=== PATIENT | male | born 1940 | race Caucasian/White ===

== ENCOUNTER → 2017-10-26 | Outpatient (CLI) | payer MEDICARE ==
[~2017-10-26] VITALS: Ht 180.3 cm; Wt 102.5 kg
[~2017-10-26] MED LIST: ACET-2267 PO; AMIO200T2 PO; AMLO1CAP5 PO; ASP81CT PO; AZIT-21 PO; CATHETER FLUSH 10 ML SYR IV SCH; CHOL20003 PO; CLON0.1T PO; DABI150C2 PO; DABI150C5 PO; DILT120C PO; DILT120C53 PO; DILT360C26 PO; ERGO2000 PO; FAMO20TA45 PO; HYDR25TA4 PO; INUL1.5T3 PO; INUL1TAB4 PO; LISI20TA PO; LISI40TA PO; METO-333 PO; METO-387 PO; MULT-608 PO; OMEG1CAP53 PO; OMEP20CA6 PO; PANT20TA2 PO; PANT40TA2 PO; RED600TA PO; WHEA1POW PO
[2017-10-26 09:07] VITALS: BP 146/82
--- NOTE | 2017-10-26 14:15 | STRESS TEST ---
DATE OF SERVICE: 10/26/2017 EXERCISE MYOVIEW STRESS TEST REPORT REFERRING PHYSICIAN: Dr. Villa. INDICATION: Coronary artery disease. FINDINGS: Baseline heart rate is 79, baseline blood pressure 144/61. Baseline EKG is sinus rhythm with no ischemic changes. SUMMARY: The patient was injected with 10.85 mCi of technetium-99 Myoview and the resting images were obtained. Then, the patient started exercising with a baseline heart rate, blood pressure and EKG mentioned above. The patient was able to exercise for a total of 4 minutes and 30 seconds on standard Gera protocol. With peak exercise level, EKG was showing [address] depression in II, III, aVF, V4, V5 and V6. Blood pressure at peak exercise level was 178/72. During recovery, heart rate and blood pressure returned to baseline. EKG returned to baseline. The resting and stress images were reviewed and compared in the short axis, horizontal long axis and vertical long axis views. Review of the images showed diaphragmatic attenuation with typical male pattern. There is decreased uptake at the basal to mid inferior wall and inferolateral wall, which is fixed. No significant ischemia was noted. SSS is 8. SDS 1. TID value 1.01. On the gated images, the left ventricle appeared to be in normal size with normal contractility. The inferior wall appeared to be marcella normally. Calculated ejection fraction 68%. CONCLUSION: 1. Fair exercise tolerance, a total of 4 minutes 30 seconds on standard Gera protocol, total of 6.4 METS achieving 95% of maximum expected artery. 2. Mild hypertensive response to exercise, returned to baseline during recovery. 3. Diaphragmatic attenuation with typical male pattern affecting the quality of the images. There is no significant ischemia or infarction was noted on SPECT images. 4. Normal left ventricular size with normal contractility with no segmental wall motion abnormality. Calculated ejection fraction 68%. Job ID: [id number] DocumentID: [id number] Dictated Date: 10/26/2017 12:02:08 Commercial Administrator Date: 10/26/2017 14:14:01 Dictated By: ALTON LEMON MD
== END ==
LOC: CARD 07:32
PROVIDERS: ATTEND Internal Medicine Cardiovascular Disease
DX: I25.10 Atherosclerotic heart disease of native coronary artery without angina pectoris (principal); I10 Essential (primary) hypertension; E78.5 Hyperlipidemia, unspecified; I48.0 Paroxysmal atrial fibrillation; E66.9 Obesity, unspecified; Z68.31 Body mass index [BMI] 31.0-31.9, adult
CPT/HCPCS: 78452; 93017

== ENCOUNTER → 2017-11-11 | Outpatient (CLI) | payer MEDICARE ==
[~2017-11-11] MED LIST changes: -CATHETER FLUSH 10 ML SYR IV SCH
== END ==
LOC: CARD 09:16
PROVIDERS: ATTEND Internal Medicine Cardiovascular Disease
DX: I25.10 Atherosclerotic heart disease of native coronary artery without angina pectoris (principal); I65.29 Occlusion and stenosis of unspecified carotid artery; E78.5 Hyperlipidemia, unspecified; E66.9 Obesity, unspecified; I48.0 Paroxysmal atrial fibrillation
CPT/HCPCS: 93306

== ENCOUNTER → 2019-03-11 | Outpatient (CLI) | payer MEDICARE ==
[~2019-03-11] MED LIST changes: -AMIO200T2 PO; +AMIO200T4 PO; +CATHETER FLUSH 10 ML SYR IV PRN; +REGADENOSON 0.4 MG/5 ML SYR (LEXISCAN) IV ONE
[2019-03-11 08:29] VITALS: BP 137/85
[2019-03-11 08:32] VITALS: BP 147/86
--- NOTE | 2019-03-14 19:06 | STRESS TEST ---
DATE OF SERVICE: 03/11/2019 LEXISCAN MYOVIEW STRESS TEST Baseline heart rate is 75. Baseline blood pressure is 137/85. Baseline EKG is sinus rhythm with no ischemic changes. In summary, the patient received 10.47 mCi of technetium-99 Myoview and the resting images were obtained. Then, he received 0.4 mg of Lexiscan followed by 30.6 mCi of technetium-99 Myoview. Throughout the test, there were no EKG changes. The resting and stress images were reviewed and compared in the short axis, horizontal long axis, and vertical long axis views. Review of the images showed diaphragmatic attenuation with decreased uptake involving the mid to apical inferior wall and inferolateral wall with subtle reversibility. SSS is , SDS 2, TID value 0.98. On the gated images, the left ventricle appeared to be normal size with normal contractility. Calculated ejection fraction is 66%. CONCLUSION: 1. The patient tolerated Lexiscan well. 2. Diaphragmatic attenuation affecting the quality of the images with questionable ischemia involving the mid to apical inferior wall and inferolateral wall. 3. Normal left ventricular size with normal contractility. Calculated ejection fraction is 66%. Job ID: [id number] DocumentID: [id number] Dictated Date: 03/14/2019 16:39:20 Roving Teller Date: 03/14/2019 19:06:17 Dictated By: ALTON LEMON MD
== END ==
LOC: CARD 06:39
PROVIDERS: ATTEND Internal Medicine Cardiovascular Disease
DX: I48.0 Paroxysmal atrial fibrillation (principal); I10 Essential (primary) hypertension; E78.5 Hyperlipidemia, unspecified
CPT/HCPCS: 78452; 93017

== ENCOUNTER 2019-03-30 07:50 | Day surgery (SDC) | payer MEDICARE ==
[~2019-03-30] VITALS: Ht 177 cm; Wt 103.8 kg
[~2019-03-30 07:50] MED LIST changes: -CATHETER FLUSH 10 ML SYR IV PRN; -REGADENOSON 0.4 MG/5 ML SYR (LEXISCAN) IV ONE
[2019-03-30] MEDS ORDERED: HEParin (CATH LAB) 2,000 ML IV ONE (07:54)
[2019-03-30] MEDS ORDERED: LIDOCAINE 1% INJ 20 ML 20 ML VIAL ONE (07:54)
[2019-03-30] MEDS ORDERED: NS IV 1000 ML 1,000 ML ONE ×2 (07:54→11:13)
[2019-03-30] MEDS ORDERED: NS IV 1000 ML 1,000 ML IV SCH (07:58)
[2019-03-30 08:13] VITALS: BP 152/85
[2019-03-30 08:24] LABS: HEMOGLOBIN 13.9 G/DL (13.3-17.7); MEAN PLATELET VOLUME 9.9 FL (7.4-10.4); RED CELL DISTRIBUTION WIDTH 13.4 % (10.0-14.5)
[2019-03-30 08:26] LABS: BILIRUBIN,URINE NEGATIVE (NEGATIVE); CLARITY,URINE CLEAR; COLOR,URINE YELLOW; GLUCOSE, URINE (UA) NEGATIVE (NEGATIVE); KETONES,URINE NEGATIVE (NEGATIVE); LEUKOCYTE ESTERASE ,URINE NEGATIVE (NEGATIVE); NITRITE,URINE NEGATIVE (NEGATIVE); PH,URINE 6 (5-9); PROTEIN,URINE NEGATIVE (NEGATIVE)
--- NOTE | 2019-03-30 08:34 | Diagnostic Imaging Report ---
INDICATION: Pre-heart catheterization. TIME OF EXAMINATION: 8:21 AM. COMPARISON: 06/01/2015. FINDINGS: The heart size is normal. The pulmonary vascularity is unremarkable. The lungs are clear. No infiltrate, effusion, or pneumothorax is detected. IMPRESSION: No acute cardiopulmonary process is detected. Dictated by: Dictated on workstation # [id number]
[2019-03-30] MEDS ORDERED: INUL2TAB8 PO (08:37)
[2019-03-30] MEDS ORDERED: HYDR25TA4 PO (08:37)
[2019-03-30] MEDS ORDERED: OMEG-143 PO (08:37)
[2019-03-30] MEDS ORDERED: MULT1TAB69 PO (08:37)
[2019-03-30 08:38] LABS: BACTERIA,URINE NEGATIVE /HPF; SQUAMOUS EPITHELIAL CELL,UR RARE /HPF
[2019-03-30] MEDS ORDERED: ALIR75PE SQ (08:38)
[2019-03-30] MEDS ORDERED: APIX5TAB PO (08:38)
[2019-03-30] MEDS ORDERED: FLEC50TA PO (08:38)
[2019-03-30] MEDS ORDERED: CETI10TA20 PO (08:40)
[2019-03-30 08:50] LABS: PROTHROMBIN TIME PATIENT 13.3 SEC (12.2-14.7)
[2019-03-30 08:58] LABS: ALANINE AMINOTRANSFERASE 24 U/L (0-55); ALBUMIN 4.6 GM/DL (3.2-4.5); ALKALINE PHOSPHATASE 50 U/L (40-136); BILIRUBIN,TOTAL 0.6 MG/DL (0.1-1.0); BUN/CREATININE RATIO 14; CALCIUM 9.7 MG/DL (8.5-10.1); CARBON DIOXIDE 28 MMOL/L (21-32); CHLORIDE 103 MMOL/L (98-107); CHOLESTEROL 130 MG/DL (< 200); CREATININE SERUM 1.41 MG/DL (0.60-1.30); GFR ESTIMATED 49; GLUCOSE 113 MG/DL (70-105); HDL CHOLESTEROL 38 MG/DL (40-60); POTASSIUM 4.2 MMOL/L (3.6-5.0); SODIUM 141 MMOL/L (135-145); TOTAL PROTEIN 7.1 GM/DL (6.4-8.2); TRIGLYCERIDES 137 MG/DL (<150); VLDL CHOLESTEROL 27 MG/DL (5-40)
[2019-03-30] MEDS ORDERED: DILT240C53 PO (09:34)
--- NOTE | 2019-03-30 09:40 | NUR ---
SPOKE WITH PT (HE HAD A LIST) WELL CALLING [facility] TO COMPLETE THE MED REC. PT WAS ABLE TO TELL ME HIS MEDS AND HOW/WHEN HE TAKES THEM. THE FOLLOWING ARE FILL DATES AND QTY ACCORDING TO CHERYL: 02-14-2019 LISINOPRIL #90/90DS 02-14-2019 METOPROLOL #30/30DS 02-15-2019 ELIQUIS #60/30DS 03-10-2019 FLECAINIDE #60/30DS 03-21-2019 HCTZ #90/90DS 03-21-2019 PANTOPRAZOLE #90/90DS PT INDICATES HE GETS HIS PRALUENT THRU PT ASSISTANCE AND HE WILL BE RECEIVING A SHIPMENT ON THIS Thursday04-01-2019 FOR HIS NEXT INJECTION ON Thursday04-04-2019. OTC MEDS: TYLENOL ZYRTEC PEPCID AC FIBER GUMMIES MTV FISH OIL
--- NOTE | 2019-03-30 09:54 | Cardiac Procedure Note-CS/ASA ---
Pre-Procedure Note Pre-Op Procedure Note H&P Reviewed The H&P was reviewed, patient examined and no changes noted. Date H&P Reviewed: Mar 30, 2019 Time H&P Reviewed: 09:53 Conscious Sedation Pre-Proced Time 09:53 ASA Score 3 For ASA 3 and 4: Consider anesthesia and medical clearance. Also, for patients with a history of failed moderate sedation consider anesthesia. Airway Lungs Heart ASA score ASA 1: a normal healthy patient ASA 2: a patient with a mild systemic disease (mid diabetes, controlled hypertension, obesity x ASA 3: a patient with a severe systemic disease that limits activity (angina, COPD, prior Myocardial infarction) ASA 4: a patient with an incapacitating disease that is a constant threat to life (CHF, renal failure) ASA 5: a moribund patient not expected to survive 24 hrs. (ruptured aneurysm) ASA 6: a declared brain- patient whose organs are being harvested. For emergent operations, add the letter E after the classification Mallampati Classification Grade 3 Sedation Plan Analgesia, Amnesia, Plan communicated to team members, Discussed options with patient/fam, Discussed risks with patient/fam The patient is an appropriate candidate to undergo the planned procedure, sedation, and anesthesia. The patient immediately re-assessed prior to indication. ALTON LEMON MD Mar 30, 2019 09:54
[2019-03-30] MEDS ORDERED: NITRO DRIP 25000 MCG/D5W 250 ML IV ONE (10:06)
[2019-03-30] MEDS ORDERED: fentaNYL INJECTION 100 MCG/2 ML AMP ONE (10:06)
[2019-03-30] MEDS ORDERED: MIDAZOLAM 5 MG/5 ML (VERSED) VIAL ONE (10:06)
[2019-03-30] MEDS ORDERED: HEParin 1000 UNIT/ML (10ML VIAL) FOR BOLUS ONE (10:06)
[2019-03-30] MEDS ORDERED: VERAPAMIL 5 MG/2 ML (CALAN) VIAL IV ONE (10:06)
[2019-03-30] MEDS ORDERED: ADENOSINE 3 MG/1 ML (ADENOSCAN) 30ML VIAL IV ONE (11:09)
[2019-03-30] MEDS ORDERED: CLOPIDOGREL 300 MG (PLAVIX) TABLET PO ONE (11:36)
[2019-03-30] MEDS ORDERED: ASPIRIN 325 MG (5 GR) TABLET ONE (11:36)
[2019-03-30] MEDS ORDERED: PATIENT MAY USE OWN MEDS, ALL PO SCH (11:45)
--- NOTE | 2019-03-30 11:45 | Consultation-Cardiology ---
HPI-Cardiology Cardiology Consultation Date of Consultation 03/30/19 Date of Admission Time Seen by Provider: 11:39 Indication: Coronary artery disease Home Medications & Allergies Allergies: Coded Allergies: atorvastatin (Unverified Allergy, Unknown, 05/30/15) caused a-fib fenofibrate (Unverified Allergy, Unknown, 05/30/15) caused a-fib episode rosuvastatin (Unverified Allergy, Unknown, 05/30/15) caused a-fib [id number]-[id number] Hx Patient Social History Alcohol Use: Denies Use Recreational Drug Use: No Smoking Status: Never a Smoker Recent Foreign Travel: No Recent Infectious Disease Expo: No Recent Hopitalizations: Yes (Appendectomy) Immunizations Up To Date Date of Pneumonia Vaccine: Apr 08, 2018 Date of Influenza Vaccine: Mar 08, 2019 Family Medical History Significant Family History: Heart Disease, CAD Under 55 Years Old, Stroke Physical Exam Physical Exam Vital Signs Vital Signs - First Documented 03/30/19 08:13 Temp 36.7 Pulse 71 Resp 18 B/P (MAP) 152/85 (107) Pulse Ox 97 O2 Delivery Room Air Capillary Refill : Height, Weight, BMI Height: 5'11.00" Weight: 226lbs. 0.0oz. 102.735474sk; 31.18 BMI Method:Stated ALTON LEMON MD Mar 30, 2019 11:45
--- NOTE | 2019-03-30 11:47 | Cardiac Cath Report ---
Cardiac Cath Report Physician (s)/Printing And Stamping Supervisor (s) Physician ALTON LEMON MD Pre-Procedure Diagnosis Pre-Procedure Diagnosis: Coronary artery disease Post-Procedure Note Procedure Start Date: Mar 30, 2019 Name of Procedure: Left heart catheterization FFR to LAD Stent to the LAD Findings/Procedure Note PROCEDURE NOTE: 78 years old gentleman with history of [id number] coronary artery disease, paroxysmal atrial fibrillation, has abnormal stress test, scheduled for cardiac catheterization possible PTCA. After explaining the procedure to the patient, all pros and cons were explained, all questions were answered. The patient signed the consent and then he was placed on the cardiac catheterization laboratory. Groin was prepped SL fashion local anesthesia was used. Sheath placed in the right radial artery, Stamping Ground catheter was advanced to the left ventricular cavity, pressure was measured no left ventricular gram was done, pulled back to the left corner systems up selective angiogram was done suspicious of significant disease in the LAD, intubated the right coronary artery and angiogram was done then I exchanged the catheter into FL 4 guide without success in intubating the left main coronary system, exchanged it into FL 3.5 guide and successfully intubated the left main coronary artery did angiogram in multiple views I was suspicious of significant lesion in the proximal mid and distal LAD. Patient received 3000 units of heparin, a second dose of 3000 units of heparin was given then FFR wire was advanced, baseline FFR to the distal LAD was 0.85. Patient was started on adenosine, FFR was 0.72 at the distal end 0.75 at the mid, decided to do the ostial/proximal LAD lesion, predilated location with 2.5 x 20 mm balloon and then deployed Trudi 2.5 x 23 mm stent expanded to 2.8 mm under 15 phi, post intervention angiogram was done after giving nitroglycerin showing excellent results, repeat FFR was 0.9 to the distal LAD, 0.95 in the mid LAD and 0.97 in the proximal LAD. At the end of the procedure the sheath was removed. vascular band was used FINDINGS: Hemodynamics LV 106/13, end-diastolic pressure of 13 Aorta 98/59 mean of 76 ANATOMY: Left Main has 50 percent ostial stenosis Left Anterior Descending has severe stenosis proximally, moderate to severe stenosis at the mid and distal portion, the mid and distal portion are smaller, FFR was 0.95 at the distal, successful deployment of Trudi drug-eluting stent 2.5 x 23 mm expanded to 2.8 mm with excellent results. FFR postintervention was 0.97 Left Circumflex is moderate in size with nonobstructive disease Right Coronory Artery is small to moderate in size with mild disease LV Gram was not done, pressure was measured CONCLUSION: 1. Multiple segment of severe stenosis at the proximal/ostial LAD, successful deployment of Trudi 2.5 x 23 mm expanded to 2.8 mm with excellent results, the mid and distal LAD has moderate to severe stenosis, the artery at the distal portion is very small artery. Will continue maximizing medical therapy and monitoring 2. 50 percent ostial left main coronary artery stenosis, no significant gradient by FFR 3. Mild disease in the circumflex and right coronary artery DISCUSSION AND RECOMMENDATION: continue to maximize medical therapy and monitor Anesthesia Type: Conscious Sedation Estimated blood loss (mL): 20 ml Contrast Amount: 115 ml Total Radiation Dose: 1420 mGy Post-Procedure Diagnosis Post-operative diagnosis: Coronary artery disease Paroxysmal atrial fibrillation Hypertension Hyperlipidemia ALTON LEMON MD Mar 30, 2019 11:47
[2019-03-30 12:45] VITALS: BP 113/62
[2019-03-30 14:00] VITALS: BP_SYST 106; BP_SYST 143; BP_DIAS 63; BP_DIAS 86
[2019-03-30 16:00] VITALS: BP 143/86
[2019-03-30] MEDS: NS IV 1000 ML 1,000 ML IV SCH ×2 (17:57→21:49)
[2019-03-30] MEDS ORDERED: NON-FORMULARY MEDICATION 1 EA EA (Acetaminophen (Tylenol Extra Strength) 500 MG) PO PRN (19:45)
[2019-03-30 20:00] VITALS: BP 135/80
[2019-03-30] MEDS ORDERED: MV,M1TAB2 PO (20:15)
[2019-03-30] MEDS ORDERED: METO-370 PO (20:15)
[2019-03-30] MEDS ORDERED: ACET-2429 PO (20:15)
[2019-03-30] MEDS ORDERED: INULIN PO SCH (21:00)
[2019-03-30] MEDS ORDERED: FLECAINIDE ACETATE 50 MG PO SCH (21:00)
[2019-03-30] MEDS ORDERED: VITAMIN D3 2000 UNIT PO SCH (21:00)
[2019-03-30] MEDS ORDERED: APIXABAN 5 MG (ELIQUIS) TABLET PO SCH ×2 (21:00)
--- NOTE | 2019-03-30 21:15 | NUR ---
THIS RN WENT THROUGH MEDS WITH PT AND HE REQUESTED THAT HE TAKE LISINOPRIL, METOPROLOL, ZYRTEC AND PEPCID AT THIS TIME. PT STATES THAT AT HOME HE NORMALLY TAKES SAID MEDICATIONS AT NIGHT TIME AND WOULD LIKE TO KEEP HIS NORMAL SCHEDULE IF AT ALL POSSIBLE. LISINOPRIL AND METOPROLOL WERE ON MAR TO BEGIN ON 03/31 AT 1800. ALL MEDICATIONS SCANNED INTO AUG THEY WERE GIVEN.
[2019-03-31] VITALS: BP 115/63
[2019-03-31 04:00] VITALS: BP 110/67
[2019-03-31 04:08] LABS: HEMOGLOBIN 11.9 G/DL (13.3-17.7); MEAN PLATELET VOLUME 9.8 FL (7.4-10.4); RED CELL DISTRIBUTION WIDTH 13.4 % (10.0-14.5); WHITE BLOOD COUNT 9.2 10^3/uL (4.3-11.0)
[2019-03-31 04:51] LABS: CALCIUM 8.6 MG/DL (8.5-10.1); CREATININE SERUM 1.32 MG/DL (0.60-1.30); POTASSIUM 4.5 MMOL/L (3.6-5.0)
[2019-03-31] MEDS ORDERED: OMEGA 3 (FISH OIL) 1000 MG CAP PO SCH (07:00)
[2019-03-31] MEDS: NS IV 1000 ML 1,000 ML IV SCH (07:46)
[2019-03-31 08:30] VITALS: BP 162/76
--- NOTE | 2019-03-31 08:34 | Cardiology Progress Note ---
Subjective Date Seen by Provider: Mar 31, 2019 Time Seen by Provider: 08:33 Subjective/Events-last exam Patient is laying down in bed, no new complaint. No chest pain Review of Systems General: No Chills, No Night Sweats, No Fatigue, No Malaise, No Appetite, No Other HEENT: No Head Aches, No Visual Changes, No Eye Pain, No Ear Pain, No Dysphasia, No Sinus Congestion, No Post Nasal Drip, No Sore Throat, No Other Pulmonary: No Dyspnea, No Cough, No Pleuritic Chest Pain, No Other Cardiovascular: No: Chest Pain, Palpitations, Orthopnea, Paroxysmal Noc. Dyspnea, Edema, Lt Headedness, Other Objective-Cardiology Exam Last Set of Vital Signs Vital Signs 03/31/19 03/31/19 04:00 07:00 Temp 36.4 Pulse 65 Resp 16 B/P (MAP) 110/67 (81) Pulse Ox 92 O2 Delivery Room Air Capillary Refill : Less Than 3 Seconds I&O Intake and Output 03/31/19 00:00 Intake Total 550 ml Balance 550 ml Intake Oral 550 ml # Voids 6 General: Alert, Oriented X3, Cooperative HEENT: Atraumatic, PERRLA Neck: Supple, No JVD, No Thyromegaly Lungs: Clear to Auscultation, Normal Air Movement Heart: Regular Rate, Normal S1, Normal S2, No Murmurs Abdomen: Normal Bowel Sounds, Soft, No Tenderness, No Hepatosplenomegaly, No Masses Extremities: No Clubbing, No Cyanosis, No Edema, Normal Pulses, No Tenderness/Swelling Skin: No Rashes, No Breakdown, No Significant Lesion Neuro: Normal Gait, Normal Speech, Strength at 5/5 X4 Ext, Normal Tone, Sensation Intact Psych/Mental Status: Mental Status NL, Mood NL Results Lab Laboratory Tests 03/31/19 03:35 A/P-Cardiology Admission Diagnosis Coronary artery disease Hypertension Hyperlipidemia Paroxysmal atrial fibrillation Assessment/Plan Coronary artery disease test post stenting to the LAD Hypertension, continue current medication Hyperlipidemia Continue current medication and follow-up as an outpatient ALTON LEMON MD Mar 31, 2019 08:34
[2019-03-31] MEDS ORDERED: ASPI-983 PO (08:38)
[2019-03-31] MEDS ORDERED: CLOP75TA28 PO (08:38)
--- NOTE | 2019-03-31 08:38 | Discharge Inst-Post CATH ---
Discharge Inst-CATH/EP Problems Reviewed?: Yes Post Cardiac Cath/EP D/C Inst Follow Up/Plan Appointment with Dr. Miranda's office in 2-4 weeks <b>CARDIAC CATH/EP PROCEDURE DISCHARGE INSTRUCTIONS</b> ACTIVITY * Go Home directly and rest. * Limit activity of the leg (or wrist if it was used) for 7 days including aerobics, swimming, jogging, bicycling, etc. * Restrict stair-climbing for 7 days if possible, if not, climb up with your non-cath leg, then bring together on the same step. * Avoid lifting, pushing, pulling or excessive movement of the affected extremity for 7 days. * Customary sexual activity may be resumed after 2 days-use caution not to use a position that strains or causes pain to the affected extremity. * No driving for 24 hours. * NO SMOKING. * Avoid straining for bowel movements for 7 days. * Gentle walking on level ground is allowed. * Returning to work will depend on the type of procedure and the results. Your doctor will discuss this with you. CALL YOUR DOCTOR FOR ANY OF THE FOLLOWING: *If bleeding from the puncture site occurs- Apply gentle pressure to site with clean cloth and call your doctor or EMS. * If a knot or lump forms under the skin, increases in size, or causes pain. * If bruising appears to be worsening or moving further down your leg instead of disappearing. * Temperature above 101 F. CARE OF YOUR GROIN INCISION; * Bruising or purple discoloration of the skin near the puncture site is common. * You may shower only, no bathtub bathing for 5 days. Be careful to avoid slipping as your leg may feel stiff. * If a closure device was used on your femoral artery, please see the attached guide regarding care of the device and your leg. * Leave dressing on FOR 24 hours. CARE OF YOUR WRIST INCISION; * Bruising or purple discoloration of the skin near the puncture site is common. * You may shower. * DO NOT submerge wrist. * Leave dressing on FOR 24 hours. ALTON LEMON MD Mar 31, 2019 08:38
[2019-03-31] MEDS ORDERED: PANTOPRAZOLE 40 MG (PROTONIX) TAB PO SCH (09:00)
[2019-03-31] MEDS ORDERED: CLOPIDOGREL 75 MG (PLAVIX) TABLET PO SCH (09:00)
[2019-03-31] MEDS ORDERED: ASPIRIN E.C. 81 MG (ECOTRIN) TAB PO SCH (09:00)
[2019-03-31] MEDS ORDERED: MULTIVIT W/MINERALS TAB (THERAGRAN M) PO SCH (09:00)
[2019-03-31] MEDS ORDERED: HYDROCHLOROTHIAZIDE 25 MG (HCTZ) TAB PO SCH (09:00)
[2019-03-31] MEDS ORDERED: [UNRECOGNIZED DRUG - OTHER] PO SCH (09:00)
[2019-03-31] MEDS ORDERED: FAMOTIDINE 20 MG (PEPCID) TABLET PO SCH (09:00)
[2019-03-31] MEDS ORDERED: meTOproloL SUCCINATE 50 MG (TOPROL XL) TAB PO SCH (18:00)
[2019-03-31] MEDS ORDERED: lisINopril 40 MG (PRINIVIL) TABLET PO SCH (18:00)
[2019-03-31] MEDS ORDERED: CETIRIZINE 10 MG PO SCH (18:00)
[2019-04-04] MEDS ORDERED: ALIROCUMAB 75 MG SQ SCH (09:00)
== END 2019-03-31 10:00 ==
LOC: CATH 07:50 → ICU 12:40 → CSD 18:55 → CATH 03-31 10:00
PROVIDERS: ATTEND Internal Medicine Cardiovascular Disease
DX: I25.10 Atherosclerotic heart disease of native coronary artery without angina pectoris (principal); I48.0 Paroxysmal atrial fibrillation; I65.29 Occlusion and stenosis of unspecified carotid artery; I10 Essential (primary) hypertension; E78.5 Hyperlipidemia, unspecified; Z79.02 Long term (current) use of antithrombotics/antiplatelets; Z79.899 Other long term (current) drug therapy; Z90.89 Acquired absence of other organs; Z88.8 Allergy status to other drugs, medicaments and biological substances; Z86.73 Personal history of transient ischemic attack (TIA), and cerebral infarction without residual deficits; Z82.49 Family history of ischemic heart disease and other diseases of the circulatory system; Z83.2 Family history of diseases of the blood and blood-forming organs and certain disorders involving the immune mechanism; Z80.9 Family history of malignant neoplasm, unspecified
CPT/HCPCS: 36415; 71045; 80048; 80053; 80061; 81000; 85027; 85347; 85610; 85730; 87081; 93005; 93458

== ENCOUNTER 2019-08-15 20:25 | Outpatient (CLI) | payer MEDICARE ==
[~2019-08-15 20:25] MED LIST changes: +ACET650T41 PO; +ALIR75PE SQ; +APIX5TAB PO; +ASPI-983 PO; +CETI10TA21 PO; +CLOP75TA28 PO; +DILT240C53 PO; +FLEC50TA PO; +INUL2TAB8 PO; -METO-387 PO; +METO50TA7 PO; +MTP25TSR PO; +MULT1TAB69 PO; +MV,M1TAB2 PO; +OMEG-143 PO
== END 2019-08-16 06:24 | disposition home or self-care (01) ==
LOC: SLEEP 20:25
PROVIDERS: ATTEND Family Medicine
DX: I49.9 Cardiac arrhythmia, unspecified (principal); G47.36 Sleep related hypoventilation in conditions classified elsewhere; I10 Essential (primary) hypertension
CPT/HCPCS: 95810

== ENCOUNTER → 2020-01-05 | Outpatient (CLI) | payer MEDICARE ==
[~2020-01-05] MED LIST changes: +MULT-567 PO; -MULT1TAB69 PO
--- NOTE | 2020-01-05 15:17 | Diagnostic Imaging Report ---
PROCEDURE: MRI lumbar spine. TECHNIQUE: Multiplanar, multisequence MRI of the lumbar spine was performed without contrast. INDICATION: Low back pain. COMPARISON: There are no prior studies available for comparison. FINDINGS: The T2 parasagittal images show that there is desiccation of the discs at every level and that there is narrowing of the disc spaces, particularly posteriorly, at L3-L4 and L4-L5. At the L3-L4 level, there is a disc bulge centrally which flattens the ventral aspect of the thecal sac and narrows the AP diameter to 17.1 mm. There is also mild narrowing of the neuroforamen on the right at this level. At the L4-L5 level, there is also a disc bulge. The AP diameter of the thecal sac is narrowed to 18.6 mm. There is moderate narrowing of the neuroforamen on the right at this level as well. At the L2-L3 level, there is a disc bulge eccentric to the left. The AP diameter of the thecal sac is narrowed to 15.3 mm. There is mild narrowing of the neuroforamen on the left at this level as well. The remainder of the lumbar spine is unremarkable for spinal stenosis or nerve root encroachment. There is a 30-40% compression deformity of the superior endplate of L1. This injury appears to be longstanding in nature. There is no abnormal signal arising from the osseous structures to suggest bone edema or fracture. There is no sign of a cord lesion. There is no paraspinal mass visualized. The bladder does appear to be distended by urine. IMPRESSION: 1. 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 However, the thecal sac is generous and there is no evidence for a high-grade central stenosis at any level. There is no significant neuroforaminal narrowing identified either. 2. There is no evidence for an acute bony abnormality. The 30-40% compression fracture of L1 is felt to be longstanding in nature. Dictated by: Dictated on workstation # [id number]
== END ==
LOC: RAD 13:15
PROVIDERS: ATTEND Physician Assistant
DX: M51.36 Other intervertebral disc degeneration, lumbar region (principal)
CPT/HCPCS: 72148

== ENCOUNTER → 2020-04-19 | Outpatient (CLI) | payer MEDICARE ==
[~2020-04-19] MED LIST changes: -AMIO200T4 PO; +AMIO200T6 PO; +ASPI-1238 PO; -ASPI-983 PO; -CETI10TA21 PO; +CETI10TA49 PO; +CLN.1T PO; -CLON0.1T PO
== END ==
LOC: LABNPT 05:56
PROVIDERS: ATTEND Orthopaedic Surgery
DX: Z01.812 Encounter for preprocedural laboratory examination (principal); Z20.828 Contact with and (suspected) exposure to other viral communicable diseases
CPT/HCPCS: 87635

== ENCOUNTER → 2020-05-01 | Outpatient (CLI) | payer MEDICARE | LOC: LABNPT 08:02 | PROVIDERS: ATTEND Family Medicine | DX: R05 Cough (principal); R09.89 Other specified symptoms and signs involving the circulatory and respiratory systems; Z20.828 Contact with and (suspected) exposure to other viral communicable diseases | CPT/HCPCS: 87635 ==

== ENCOUNTER → 2020-07-31 | Outpatient (CLI) | payer MEDICARE ==
[~2020-07-31] MED LIST changes: -LISI40TA PO; +LISI40TA9 PO
== END ==
LOC: CARD 15:00
PROVIDERS: ATTEND Physician Assistant
DX: I10 Essential (primary) hypertension (principal); I25.10 Atherosclerotic heart disease of native coronary artery without angina pectoris
CPT/HCPCS: 93306

== ENCOUNTER → 2020-08-06 | Outpatient (CLI) | payer MEDICARE ==
[~2020-08-06] VITALS: Ht 177 cm; Wt 102.0 kg
[~2020-08-06] MED LIST changes: +CATHETER FLUSH 10 ML SYR IV PRN; +REGADENOSON 0.4 MG/5 ML SYR (LEXISCAN) IV ONE
[2020-08-06 08:57] VITALS: BP 124/75
--- NOTE | 2020-08-06 11:24 | Cardiology Stress Test Report ---
Stress Test Report Date of Procedure/Referring: Date of Procedure: Aug 06, 2020 Joleen Peterson Admitting Physician Mechelle Haywood MD Indications: HTN Baseline Heart Rate: 73 Baseline Blood Pressure: Blood Pressure Systolic: 124 Blood Pressure Diastolic: 75 Baseline Vitals Vital Signs Date Time Temp Pulse Resp B/P (MAP) Pulse Ox O2 Delivery O2 Flow Rate FiO2 08/06/20 08:57 75 18 124/75 (91) 97 Room Air Baseline EKG: Baseline EKG: NSR Summary After explaining the procedure to the patient, he signed a consent and then brought to the stress nuclear laboratory. Patient received 0.4 mg Lexiscan for stress test, ECG, heart rate and blood pressure were monitored continuously. Resting and stress dose of radio tracer were injected, imaging was acquired and reviewed in short axis, horizontal long axis and vertical long axis views. TID: 0.93 SSS: 16 SDS: 0 EF: 65 1. Patient tolerated Lexiscan well 2. Fixed defect involving the basal to mid inferior wall and inferoseptum, probably due to diaphragmatic attenuation, no significant reversibility was noted 3. Normal left ventricular size with normal contractility, EF 65 percent ALTON LEMON MD Aug 06, 2020 11:24
== END ==
LOC: CARD 07:30
PROVIDERS: ATTEND Physician Assistant
DX: I25.10 Atherosclerotic heart disease of native coronary artery without angina pectoris (principal); I10 Essential (primary) hypertension
CPT/HCPCS: 78452; 93017; A9502

== ENCOUNTER → 2020-09-03 | Outpatient (RCR) | payer MEDICARE ==
[~2020-09-03] MED LIST changes: -CATHETER FLUSH 10 ML SYR IV PRN; -REGADENOSON 0.4 MG/5 ML SYR (LEXISCAN) IV ONE
== END | disposition home or self-care (01) ==
PROVIDERS: ATTEND Nurse Practitioner Family
DX: R29.898 Other symptoms and signs involving the musculoskeletal system (principal); Z96.611 Presence of right artificial shoulder joint

== ENCOUNTER 2020-09-06 11:12 | Outpatient (RCR) | payer MEDICARE | END 2020-09-20 10:07 | disposition home or self-care (01) | PROVIDERS: ATTEND Nurse Practitioner Family | DX: R29.898 Other symptoms and signs involving the musculoskeletal system (principal); Z96.611 Presence of right artificial shoulder joint ==

== ENCOUNTER 2021-08-28 05:32 | Outpatient (CLI) | payer MEDICARE, OTHER ==
[~2021-08-28] VITALS: Ht 177.8 cm; Wt 104.3 kg
[~2021-08-28 05:32] MED LIST changes: -ALIR75PE SQ; +ALIR75PE5 SQ; -AMIO200T6 PO; +AMIO200T65 PO
[2021-08-28] MEDS ORDERED: DRON400T6 PO (12:48)
[2021-08-28] MEDS ORDERED: ALIR75PE5 SQ (12:48)
== END 2021-08-28 14:23 | disposition home or self-care (01) ==
LOC: PREOP 05:32
PROVIDERS: ATTEND Surgery
DX: Z01.818 Encounter for other preprocedural examination (principal)

== ENCOUNTER 2021-09-01 08:41 | Emergency (ER) | payer MEDICARE, OTHER ==
[~2021-09-01] VITALS: Ht 177.8 cm; Wt 104.5 kg
[~2021-09-01 08:41] MED LIST changes: +DRON400T6 PO
--- NOTE | 2021-09-01 08:54 | ED Respiratory ---
General Stated Complaint: CHEST CONGESTION - COUGH - FEVER Source: patient Exam Limitations: no limitations History of Present Illness Date Seen by Provider: Sep 01, 2021 Time Seen by Provider: 08:46 Initial Comments 81yoM with PMH of CAD with a stent, pAfib on Eliquis, HTN, HLD coming in due to 1 week of cough and congestion. Went to the clinic on Thursday and had a negative Flu and COVID test that day. The next day he called back because he wasn't feeling better and was started on antibiotics as well as codeine/cough syrup. He still says the cough is persistent so he presented here for repeat evaluation. H e denies any chest pain, SOA, abd pain, n/v/d, weakness, numbness, headache, rash, vision changes, dysuria, or any other concerns. Allergies and Home Medications Allergies Coded Allergies: atorvastatin (Unverified Allergy, Unknown, 05/30/15) caused a-fib fenofibrate (Unverified Allergy, Unknown, 05/30/15) caused a-fib episode rosuvastatin (Unverified Allergy, Unknown, 05/30/15) caused a-fib Patient Home Medication List Home Medication List Reviewed: Yes Alirocumab (Praluent Pen) 75 Mg/1 Ml Pen.injctr, 75 MG SQ UD, (Reported) Entered as Reported by: JOAQUÍN PANDEY on 08/28/21 1248 Apixaban (Eliquis) 5 Mg Tablet, 5 MG PO BID, (Reported) Entered as Reported by: NOAH SHEFFIELD on 03/30/19 0838 Dronedarone HCl (Multaq) 400 Mg Tablet, 400 MG PO BID, (Reported) Entered as Reported by: JOAQUÍN PANDEY on 08/28/21 1248 Hydrochlorothiazide (Hydrochlorothiazide) 25 Mg Tablet, 25 MG PO DAILY, (Reported) Entered as Reported by: NOAH SHEFFIELD on 03/30/19 0837 Lisinopril (Lisinopril) 40 Mg Tablet, 40 MG PO 1800, (Reported) Entered as Reported by: BIB COPE on 05/30/152200 Metoprolol Succinate (Metoprolol Succinate) 50 Mg Tab.er.24h, 50 MG PO DAILY, (Reported) Entered as Reported by: EVETTE CARPIO on 03/30/192014 Discontinued Medications Acetaminophen (Acetaminophen 8 Hour) 650 Mg Tablet.er, 650 MG PO Q8H PRN for PAIN-MILD, (Reported) Discontinued Reason: No Longer Taking Entered as Reported by: EVETTE CARPIO on 03/30/192014 Alirocumab (Praluent Pen) 75 Mg/1 Ml Pen.injctr, 75 MG SQ EVERY 2 WEEKS, (Reported) Discontinued Reason: No Longer Taking Entered as Reported by: NOAH SHEFFIELD on 03/30/19 08 Aspirin (Aspirin EC) 81 Mg Tablet.dr, 81 MG PO DAILY Discontinued Reason: No Longer Taking Prescribed by: ALTON LEMON on 03/31/19 08 Cetirizine HCl (Zyrtec) 10 Mg Tablet, 10 MG PO 1800, (Reported) Discontinued Reason: No Longer Taking Entered as Reported by: NOAH SHEFFIELD on 03/30/19 0840 Cholecalciferol (Vitamin D3) (Vitamin D3) 2,000 Unit Capsule, 2,000 UNIT PO BID, (Reported) Discontinued Reason: No Longer Taking Entered as Reported by: JERSEY KOVACS on 02/12/15 1428 Clopidogrel Bisulfate (Clopidogrel) 75 Mg Tablet, 75 MG PO DAILY Discontinued Reason: No Longer Taking Prescribed by: ALTON LEMON on 03/31/19837 Famotidine (Pepcid AC) 20 Mg Tablet, 20 MG PO DAILY, (Reported) Discontinued Reason: No Longer Taking Entered as Reported by: BIB COPE on 05/30/15 2156 Flecainide Acetate (Flecainide Acetate) 50 Mg Tablet, 50 MG PO BID, (Reported) Discontinued Reason: No Longer Taking Entered as Reported by: NOAH SHEFFIELD on 03/30/19 08 Inulin (Fiber Gummies) 2 Gm Tab.chew, 4 GM PO BID, (Reported) Discontinued Reason: No Longer Taking Entered as Reported by: NOAH SHEFFIELD on 03/30/19 0837 Mv,Minerals/FA/Lycopene/Ginkgo (One Daily For Men 50+ Adv Tab) 1 Each Tablet, 1 EACH PO DAILY, (Reported) Discontinued Reason: No Longer Taking Entered as Reported by: EVETTE CARPIO on 03/30/192014 Corydon-3 Fatty Acids/Fish Oil (Corydon-3 Fish Oil 1,000 mg Sfgl) 1 Each Capsule, 1 EACH PO BID, (Reported) Discontinued Reason: No Longer Taking Entered as Reported by: NOAH SHEFFIELD on 03/30/19 0837 Pantoprazole Sodium (Protonix) 40 Mg Tablet.dr, 40 MG PO DAILY, (Reported) Discontinued Reason: No Longer Taking Entered as Reported by: STORMY ZULETA on 02/13/15 0824 Review of Systems Review of Systems Constitutional: No chills, No fever EENTM: No blurred vision Respiratory: cough Cardiovascular: No chest pain Gastrointestinal: No abdominal pain Genitourinary: no symptoms reported Musculoskeletal: no symptoms reported Skin: no symptoms reported Psychiatric/Neurological: No Symptoms Reported Hematologic/Lymphatic: No Symptoms Reported Immunological/Allergic: no symptoms reported All Other Systems Reviewed Negative Unless Noted: Yes Past Tcyfkmw-Xlhahp-Wiyfam Hx Patient Social History Tobacco Use?: No Immunizations Up To Date First/Initial COVID19 Vaccinat: AUGUST 2020 Second COVID19 Vaccination Buzz: SEPTEMBER 2020 Third COVID19 Vaccination Date: NO Seasonal Allergies Seasonal Allergies: No Past Medical History Surgeries: Yes (Appendectomy-Early 60's, Tonsillectomy, Parks teeth x3) Appendectomy, Tonsillectomy Respiratory: No Cardiac: Yes Atrial Fibrillation, Coronary Artery Disease, Heart Attack, High Cholesterol, Hypertension Neurological: Yes (2002) TIA Reproductive Disorders: No Genitourinary: No Gastrointestinal: Yes Gastroesophageal Reflux, Hemorrhoids Musculoskeletal: Yes Arthritis Endocrine: No Cancer: Yes Melanoma Did You Recieve Any Treatments: Yes What Type of Treatment Did You: Surgical Intervention Psychosocial: No Integumentary: No Blood Disorders: No Adverse Reaction/Blood Tranf: No Family Medical History Heart Disease, CAD Under 55 Years Old, Stroke Physical Exam Vital Signs - First Documented 09/01/21 08:44 Temp 36.1 Pulse 67 Resp 18 B/P (MAP) 146/78 (100) Pulse Ox 96 O2 Delivery Room Air Capillary Refill : Height: 5'11.00" Weight: 226lbs. 0.0oz. 102.989755ep; 32.99 BMI Method:Stated General Appearance: WD/WN, no apparent distress Eyes: Bilateral Eye Normal Inspection HEENT: PERRL/EOMI, normal ENT inspection, pharynx normal Neck: non-tender, full range of motion, supple, normal inspection Respiratory: chest non-tender, lungs clear, normal breath sounds, no respirato ry distress, no accessory muscle use Cardiovascular: regular rate, rhythm, no edema, no murmur Gastrointestinal: normal bowel sounds, non tender, soft; No distended, No guarding, No rebound Extremities: normal range of motion, non-tender, normal inspection, no pedal edema, no calf tenderness, normal capillary refill Neurologic/Psychiatric: no motor/sensory deficits, alert, normal mood/affect Skin: normal color, warm/dry Lymphatic: no adenopathy Progress/Results/Core Measures Suspected Sepsis SIRS Temperature: Pulse: Respiratory Rate: Blood Pressure / Mean: Results/Orders My Orders Orders - HILTON HERNANDEZ MD Chest 1 View, Ap/Pa Only (09/01/21 09:02) Dexamethasone Tablet (Decadron Tablet) (09/01/21 09:12) Vital Signs/I&O 09/01/21 08:44 Temp 36.1 Pulse 67 Resp 18 B/P (MAP) 146/78 (100) Pulse Ox 96 O2 Delivery Room Air Capillary Refill : Progress Note : Progress Note 81yoM with above history coming in due to cough and congestion worsening over the past week despite being on antibiotics. ABCs were intact and vitals were stable on presentation. Specifically, I personally walked the patient around the room and his ambulatory oxygen saturation stayed around 98%. I did notice some subjectively prolonged expiratory phase of his breathing. He has no history of lung disease and does not smoke. It is possible he has some obstructive pathology that is been undiagnosed. We will give him a dose of Decadron to potentially help with this. Chest x-ray also ordered. Chest x-ray on my interpretation with no pneumonia, pneumothorax, normal cardiac silhouette, no pleural effusion, or other abnormality seen. He continued to do well on reassessment and I believe he is stable for discharge with outpatient follow-up. He was sent home with strict return precautions. Diagnostic Imaging Diagonstic Imaging: Xray Plain Films/CT/US/NM/MRI: chest Comments [facility] [place], [place] NAME: [facility]ESSI [facility] REC#: [id number] PT STATUS: REG ER : 1940 PHYSICIAN: HILTON HERNANDEZ MD ADMIT DATE: 09/01/21/ER Draft Date of Exam:09/01/21 CHEST 1 VIEW, AP/PA ONLY EXAMINATION: Chest 1 view HISTORY: Cough COMPARISON: 03/30/2019 FINDINGS: The lungs are clear without edema or pneumonia. No pleural effusion or pneumothorax. Heart size is normal. IMPRESSION: 1. Clear lungs. Dictated on workstation # [id number] Dict: 09/01/21 0928 Trans: 09/01/21 0930 [facility] [id number] Interpreted by: AMANDA BEASLEY MD Electronically signed by: Departure Impression Primary Impression: Upper respiratory infection Qualified Codes: J06.9 - Acute upper respiratory infection, unspecified Disposition: HOME, SELF-CARE Condition: Stable Departure-Patient Inst. Decision time for Depature: 09:45 Referrals: DIA FERREIRA MD (PCP/Family) Primary Care Physician Patient Instructions: Cough, Adult (DC) Add. Discharge Instructions: You were seen in the emergency department for your worsening cough and shortness of breath. Your chest x-ray was clear and does not show any pneumonia. We gave you a dose of steroids which should last for a few days. Finish antibiotics. Continue to take your cough medicine as prescribed. If you have worsening shortness of breath or worsening fever please call your regular doctor or come back to the ER. Typically this takes over a week to get better. HILTON HERNANDEZ MD Sep 01, 2021 08:54
--- NOTE | 2021-09-01 09:31 | Diagnostic Imaging Report ---
EXAMINATION: Chest 1 view HISTORY: Cough COMPARISON: 03/30/2019 FINDINGS: The lungs are clear without edema or pneumonia. No pleural effusion or pneumothorax. Heart size is normal. IMPRESSION: 1. Clear lungs. Dictated by: Dictated on workstation # [id number]
[2021-09-01 09:44] VITALS: BP 128/66
== END 2021-09-01 09:51 | disposition home or self-care (01) ==
LOC: EDUNIT# 08:41 → ER 08:42
DX: J06.9 Acute upper respiratory infection, unspecified (principal); I48.0 Paroxysmal atrial fibrillation; Z79.01 Long term (current) use of anticoagulants
CPT/HCPCS: 71045

== ENCOUNTER 2021-10-02 05:34 | Outpatient (CLI) | payer MEDICARE, OTHER ==
[~2021-10-02] VITALS: Ht 177.8 cm; Wt 99.8 kg
[2021-10-02] MEDS ORDERED: RIVA10TA PO (11:09)
== END 2021-10-02 10:33 | disposition home or self-care (01) ==
LOC: PREOP 05:34
PROVIDERS: ATTEND Surgery
DX: Z01.818 Encounter for other preprocedural examination (principal)

== ENCOUNTER 2021-10-09 09:23 | Day surgery (SDC) | payer MEDICARE, OTHER ==
--- NOTE | 2021-10-02 13:31 | HISTORY AND PHYSICAL ---
DATE OF SERVICE: DATE OF SERVICE: 10/09/2021. ATTENDING PRIMARY CARE PHYSICIAN: Dr. Mechelle Haywood. HISTORY OF PRESENT ILLNESS: The patient is an 81-year-old male who is known to us. He does have a history of colon polyps in the past and does have a longstanding history of gastroesophageal reflux disease. He had reflux in 2005 and was started on omeprazole at that time. He has had several colonoscopies in the past where polyps have been identified; however, have been benign. His last EGD and colonoscopy was on 10/20/2014 as well as an excision of a recurrent skin lesion of the left shoulder. EGD showed reflux esophagitis class B, small hiatal hernia that was approximately 1.5 cm in size as well as a mild to moderate gastritis. Biopsies were negative for H. pylori as well as negative for Shankar's esophagus. The colonoscopy showed chronic stage II external and internal hemorrhoids as well as a small hyperplastic polyp of the rectum that was 1 mm in size as well as a mild sigmoid diverticulosis. The polyp was biopsied and found to be benign. The skin lesion was found to be a benign keloid. On today's visit, he reports he is here in need of another colonoscopy as well as an EGD. Again, his last colonoscopy was in 2014, which did show a tubular adenoma. He denies any diarrhea or constipation as well as no family history of colon cancer. He does report occasional episodes of blood in his stool, but does have a history of hemorrhoids. He does report that he does have episodes of reflux and is currently on Protonix 40 mg daily. However, we will still have breakthrough episodes. He denies any nausea or vomiting as well as no hematemesis or any coffee ground emesis. PAST MEDICAL HISTORY: Atrial fibrillation, coronary artery disease, TIA, hypertension, hyperlipidemia, gastroesophageal reflux disease, history of colon polyps. PAST SURGICAL HISTORY: Tonsillectomy, appendectomy, cardiac catheterization with stent placement in 2019, excision of melanoma in 2018. ALLERGIES: CHOLESTEROL MEDICATION. MEDICATIONS: Protonix 40 mg daily, Xarelto 20 mg daily, diltiazem 240 mg daily, lisinopril 40 mg daily, metoprolol succinate ER 50 mg daily, hydrochlorothiazide 25 mg daily, Praluent 75 mg every 2 weeks, Multaq 400 mg b.i.d., multivitamin, vitamin D3, fiber supplementation, Zyrtec 10 mg daily, Pepcid 20 mg daily, aspirin 81 mg daily. SOCIAL HISTORY: Negative for tobacco smoke. Negative for alcohol. FAMILY HISTORY: Mother with stroke at age 77. Father, myocardial infarction at age 45. Paternal grandfather with myocardial infarction in his 60s. VITAL SIGNS: Blood pressure is 132/80. Current weight is 230 pounds, height 5 feet 11 inches. REVIEW OF SYSTEMS: This is a well-nourished male in no acute distress. He is not experiencing any shortness of breath or difficulty breathing. No chest pain, palpitations or diaphoresis. No nausea, vomiting or abdominal pain. No diarrhea or constipation. He does report occasional episodes of bright red blood in his stool. No dark tarry stools. He also reports occasional episodes of reflux. No hematemesis, no coffee ground emesis. No fever or chills. No recent inadvertent weight loss. All other review of systems negative. PHYSICAL EXAMINATION: CHEST: Clear. Good breath sounds bilaterally. HEART: Regular, no murmurs. EXTREMITIES: No lower extremity edema. Negative Homans sign. HEENT: No scleral icterus. NECK: No cervical lymphadenopathy. ABDOMEN: Soft, nontender, nondistended. SKIN: Warm, dry and pink. NEUROLOGIC: Awake, alert and oriented x3. ASSESSMENT AND PLAN: An 81-year-old male with a history of polyps as well as recurrent gastroesophageal reflux disease. At this time, we will proceed with scheduling him for an EGD and a colonoscopy. Risks and benefits of the procedure as well as the procedure and home care instructions were explained to the patient. He verbalized understanding of instructions and agrees to proceed as planned. At this time, we will schedule him for an EGD and a colonoscopy. Job ID: [id number] DocumentID: [id number] Dictated Date: 10/02/2021 13:05:45 Chlorine Cells Operator Date: 10/02/2021 13:30:18 Dictated By: MARIAH PEREZ APRN
[~2021-10-09] VITALS: Ht 177.8 cm; Wt 99.8 kg
[~2021-10-09 09:23] MED LIST changes: +RIVA10TA PO
[2021-10-09] MEDS ORDERED: LACTATED RINGERS 1,000 ML IV ONE (09:28)
[2021-10-09] MEDS ORDERED: LACTATED RINGERS 1,000 ML IV STA (09:31)
[2021-10-09] MEDS ORDERED: HURRICAINE EXT TUBE (BENZOCAINE) XX PRN (09:45)
[2021-10-09] MEDS ORDERED: LIDOCAINE JELLY 2% 6 ML SYRINGE MM PRN (09:45)
[2021-10-09 09:49] VITALS: BP 142/69
[2021-10-09] MEDS ORDERED: CETI10CA PO (10:12)
[2021-10-09] MEDS ORDERED: ACET-2840 PO (10:12)
[2021-10-09] MEDS ORDERED: CHOL200074 PO (10:12)
[2021-10-09] MEDS ORDERED: PANT40TA52 PO (10:12)
[2021-10-09] MEDS ORDERED: INUL2TAB8 PO (10:12)
[2021-10-09] MEDS ORDERED: FAMO-119 PO (10:12)
[2021-10-09] MEDS ORDERED: ASPI-999 PO (10:12)
--- NOTE | 2021-10-09 11:22 | Progress Note-Pre Operative ---
Pre-Operative Progress Note H&P Reviewed The H&P was reviewed, patient examined and no changes noted. Date Seen by Provider: October 09, 2021 Time Seen by Provider: 10:30 Date H&P Reviewed: October 09, 2021 Time H&P Reviewed: 10:30 Pre-Operative Diagnosis: GERD, hx polyp VINCE PENN MD October 09, 2021 11:22
--- NOTE | 2021-10-09 11:23 | Discharge Inst-Surgical ---
D/C Lap Instructions-ISAMAR Follow Up Activity as tolerated High Fiber Diet 25g or more per day Avoid Alcohol, Caffeine, Spicy [place] and Acid foods. Drink 64 fluid oz or more of fluids per day. Symptoms to Report: Fever over 101 degree F, Nausea/Vomiting If any problems/questions: Contact your physician or go to Emergency Room VINCE PENN MD October 09, 2021 11:23
[2021-10-09] MEDS ORDERED: ONDANSETRON 4 MG/2 ML (SDV) Z0FRAN IVP PRN (11:30)
[2021-10-09] MEDS ORDERED: ONDANSETRON 4 MG (ZOFRAN) ORAL DISSOLVE TAB PO PRN (11:30)
[2021-10-09] MEDS ORDERED: PROPOFOL INJECTION 50 ML IV ONE (11:46)
[2021-10-09 12:45] VITALS: BP 92/53
[2021-10-09 12:50] VITALS: BP 101/59
[2021-10-09 12:55] VITALS: BP 101/59
--- NOTE | 2021-10-09 13:00 | Progress Note-Post Operative ---
Post-Operative Progess Note Surgeon (s)/Ornamental Metal Worker Apprentice (s) Surgeon VINCE PENN MD Ornamental Metal Worker Apprentice: none Pre-Operative Diagnosis GERD, hx polyp Post-Operative Diagnosis reflux esophagitis(grade B), moderate HH(cm), moderate gastritis. chronic stage 2-3 ext and int hemorrhoids. Procedure & Operative Findings Date of Procedure 10/09/21 Procedure Performed/Findings EGD with bx. colonoscopy. Anesthesia Type mac Estimated Blood Loss Estimated blood loss (mL): minimal Specimens/Packing Specimens Removed ge jxn, antrum VINCE PENN MD October 09, 2021 13:00
[2021-10-09 13:25] VITALS: BP 106/63
[2021-10-09 13:45] VITALS: BP 106/63
--- NOTE | 2021-10-09 19:28 | OPERATIVE REPORT ---
DATE OF SERVICE: 10/09/2021 ATTENDING PRIMARY CARE PHYSICIAN: Mechelle Haywood MD PREOPERATIVE DIAGNOSES: Gastroesophageal reflux disease, history of tubular adenoma. POSTOPERATIVE DIAGNOSES: Reflux esophagitis, Hornbeck grade B, moderate-sized hiatal hernia approximately 3 cm in size, moderate gastritis. No distal obstructions. Mild chronic stage II external and internal hemorrhoids. PROCEDURE: EGD with biopsy, colonoscopy. SURGEON: Vince Penn MD ANESTHESIA: Monitored anesthesia care. ESTIMATED BLOOD LOSS: Minimal. FINDINGS: Same as postoperative diagnoses. DISPOSITION: The patient tolerated the procedure well. INDICATIONS: The patient is an 81-year-old male known to us. He has had reflux since 2006 and has been on omeprazole. He has also had several colonoscopies done in the past with the last one done in 2014 and was found to have a tubular adenoma. He reports that his reflux has worsened. He does report occasional episodes of self-limited blood after a bowel movement; however, he is also on Xarelto for his atrial fibrillation. DESCRIPTION OF PROCEDURE: The patient was brought to the endoscopy suite, laid in the left lateral decubitus position. After adequate IV pain and sedative medications and monitored anesthesia care, the mouthpiece was applied. The endoscope was placed in the mouth, visualizing the pharynx and hypopharyngeal region. Vocal cords, epiglottis and vallecula identified and appeared to be normal. The endoscope was gently intubated the esophageal opening and esophagus insufflated. The endoscope was then advanced to the first, second and third portion of esophagus at the level of GE junction, reflux esophagitis, Hornbeck grade B identified. No ulcers or strictures identified in this region. A biopsy was taken with forceps with visualization of good hemostasis. The endoscope was then advanced into the stomach and endoscope retroflexed, visualizing a moderate size hiatal hernia approximately 3 cm in size, which appeared larger than what we have seen before. There was a moderate severity gastritis. No formal ulcerations, polyps, or any neoplasms. A biopsy was taken with forceps with visualization of good hemostasis. The endoscope was then advanced to the pylorus and the first and second portion of the duodenum, which appeared normal with no ulcerations or any distal obstructions. The endoscope was slowly withdrawn while taking a second look and suctioning of residual air with no additional findings. A digital rectal examination was performed, which revealed a chronic between stage II and III external and internal hemorrhoids, which were not actively edematous nor inflamed and no bleeding. Normal sphincter tone was felt and there were no palpable masses. Prostate gland was palpable and appeared normal. The endoscope was then intubated to the anus and rectum gently insufflated. The endoscope was then advanced through the valves of Larios of the rectum with no polyps or any neoplasms identified. Through the sigmoid colon, no diverticulosis identified. The endoscope was then advanced to the remainder of the descending, transverse and ascending colon to the cecum, which appeared normal with no polyps or any neoplasms identified. The endoscope was slowly withdrawn while taking a second look and suctioning of residual air with no additional findings. The patient tolerated the procedure well. We will recommend the necessary lifestyle and dietary accommodation including small and more frequent meals, avoiding to eating at night as well as head elevation while lying supine. He also needs to avoid caffeinated beverages, spicy, greasy and acidic foods. He is currently on Protonix 40 mg daily as well as Pepcid 20 mg daily. If he continues to have symptoms despite maximal medical therapy, we will replace his Pepcid with omeprazole 40 mg daily to be taken on a different time of the day of the Protonix. We also recommend a high-fiber diet with a fiber supplement, which should equal or exceed 30 grams daily as well as significant amounts of water to promote soft stools on a daily basis. If he is asymptomatic, he does not need another colonoscopy for another 10 years. Job ID: [id number] DocumentID: [id number] Dictated Date: 10/09/2021 12:45:46 Utilization Management Rn Date: 10/09/2021 19:27:43 Dictated By: VINCE PENN MD
== END 2021-10-09 13:45 | disposition home or self-care (01) ==
LOC: ENDO 09:23
PROVIDERS: ATTEND Surgery
DX: Z12.11 Encounter for screening for malignant neoplasm of colon (principal); K21.00 Gastro-esophageal reflux disease with esophagitis, without bleeding; K44.9 Diaphragmatic hernia without obstruction or gangrene; K29.50 Unspecified chronic gastritis without bleeding; K64.4 Residual hemorrhoidal skin tags; K64.2 Third degree hemorrhoids; I48.91 Unspecified atrial fibrillation; Z86.010 Personal history of colon polyps; Z79.01 Long term (current) use of anticoagulants; Z79.899 Other long term (current) drug therapy
CPT/HCPCS: 43239; G0105; 88305

== ENCOUNTER → 2021-11-29 | Outpatient (CLI) | payer MEDICARE, OTHER ==
[~2021-11-29] MED LIST changes: +ACET-2717 PO; +ACET-2840 PO; -ACET650T41 PO; +ASPI-999 PO; +CETI10CA PO; +CHOL200074 PO; +FAMO-119 PO; +PANT40TA52 PO
--- NOTE | 2021-11-29 13:20 | Diagnostic Imaging Report ---
PROCEDURE: US Renal Bilateral. TECHNIQUE: Multiple real-time grayscale images were obtained over the kidneys in various projections bilaterally. INDICATION: Chronic kidney disease. Right kidney measures 9.6 x 5.9 x 6.1 cm and left kidney measures 10.3 x 4.8 x 6.0 cm. Cortical thickness and echogenicity is normal. No calculi are seen. There is no hydronephrosis. Bladder demonstrate bilateral ureteral jets. There may be some trabeculation to the bladder, perhaps owing to chronic outlet obstruction. IMPRESSION: 1. Unremarkable appearance of bilateral kidneys without evidence of calculi or hydronephrosis. 2. Bladder trabeculation which may be owing to chronic bladder outlet obstruction. Dictated by: Dictated on workstation # [id number]
== END ==
LOC: RAD 12:30
PROVIDERS: ATTEND Internal Medicine Nephrology
DX: N18.32 Chronic kidney disease, stage 3b (principal); D63.1 Anemia in chronic kidney disease; E83.9 Disorder of mineral metabolism, unspecified
CPT/HCPCS: 76770

== ENCOUNTER 2022-08-10 08:58 | Emergency (ER) | payer MEDICARE, OTHER ==
[~2022-08-10] VITALS: Ht 177 cm; Wt 97.5 kg
--- NOTE | 2022-08-10 09:48 | ED General ---
General Chief Complaint: Respiratory Problems Stated Complaint: GAS PAIN, DISCOMFORT Nursing Triage Note: PT PRESENTS TO ED VIA POV FROM HOME WITH COMPLAINTS OF L SIDED CP WHICH RESOLVED THIS AM BUT NOW FEELS SOME SOA WITH EXIRTION/WALKING. Source of Information: Patient, Family () Exam Limitations: No Limitations History of Present Illness Date Seen by Provider: Aug 10, 2022 Time Seen by Provider: 09:00 Initial Comments 82-year-old male arrives with his . History obtained individually from each. He tells me initially that he had an episode of what he described as "gas pain" in his epigastric region, left upper abdomen last night. It lasted about 2 or 3 minutes and was described as severe. It resolved on its own and he acknowledges that he stayed up worrying about it all night. He does have a history of cardiac disease, single stent and atrial fibrillation. He was worried this may have been a cardiac type pain. He acknowledges he may have just been "having anxiety" at this point but wanted to get it checked out to get some peace of mind. Did have a similar pain this morning after breakfast but it was not as severe. It again only lasted a minute or so. His tells me she gave him some Tums at that time. His cardiac stent was several years ago. He had a stress test a year and a half ago which was negative. 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 He is currently asymptomatic though he does endorse some shortness breath with exertion intermittently for the last several months. No fevers chills cough. All other systems reviewed and negative except documented per HPI. Voice recognition software was used to help create this chart Allergies and Home Medications Allergies Coded Allergies: atorvastatin (Unverified Allergy, Unknown, 05/30/15) caused a-fib fenofibrate (Unverified Allergy, Unknown, 05/30/15) caused a-fib episode rosuvastatin (Unverified Allergy, Unknown, 05/30/15) caused a-fib Patient Home Medication List Home Medication List Reviewed: Yes Acetaminophen (Tylenol 8 Hour) 650 Mg Tablet.er, 650 MG PO BID, (Reported) Entered as Reported by: SUNNY SEE on 10/09/21 1012 Alirocumab (Praluent Pen) 75 Mg/1 Ml Pen.injctr, 75 MG SQ UD, (Reported) Entered as Reported by: JOAQUÍN PANDEY on 08/28/21 1248 Aspirin (Aspirin) 81 Mg Tab.chew, 81 MG PO DAILY, (Reported) Entered as Reported by: SUNNY SEE on 10/09/21 1012 Cetirizine HCl (Zyrtec) 10 Mg Capsule, 10 MG PO DAILY, (Reported) Entered as Reported by: SUNNY SEE on 10/09/21 101 Cholecalciferol (Vitamin D3) (Vitamin D3) 50 Mcg (2000 Unit) Capsule, 50 MCG PO DAILY, (Reported) Entered as Reported by: SUNNY SEE on 10/09/21 1012 Dronedarone HCl (Multaq) 400 Mg Tablet, 400 MG PO BID, (Reported) Entered as Reported by: JOAQUÍN PANDEY on 08/28/21 1248 Famotidine (Pepcid) 20 Mg Tablet, 20 MG PO DAILY, (Reported) Entered as Reported by: SUNNY SEE on 10/09/21 101 Hydrochlorothiazide (Hydrochlorothiazide) 25 Mg Tablet, 25 MG PO DAILY, (Reported) Entered as Reported by: NOAH SHEFFIELD on 03/30/19 0837 Inulin (Fiber Gummies) 2 Gram Tab.chew, 2 GM PO DAILY, (Reported) Entered as Reported by: SUNNY SEE on 10/09/21 101 Lisinopril (Lisinopril) 40 Mg Tablet, 40 MG PO 1800, (Reported) Entered as Reported by: BIB COPE on 05/30/15 2201 Metoprolol Succinate (Metoprolol Succinate) 50 Mg Tab.er.24h, 50 MG PO DAILY, (Reported) Entered as Reported by: EVETTE CARPIO on 03/30/192014 Pantoprazole Sodium (Pantoprazole Sodium) 40 Mg Tablet.dr, 40 MG PO DAILY, (Reported) Entered as Reported by: SUNNY SEE on 10/09/21 101 Rivaroxaban (Xarelto) 10 Mg Tablet, 10 MG PO DAILY, (Reported) Entered as Reported by: JOAQUÍN PANDEY on 10/02/21 1109 Review of Systems Review of Systems Constitutional: no symptoms reported Past Hlyhhyr-Rpgcrj-Gtayhq Hx Patient Social History Tobacco Use?: No Substance use?: No Alcohol Use?: No Pt feels they are or have been: No Immunizations Up To Date First/Initial COVID19 Vaccinat: JUL 2020 Second COVID19 Vaccination Buzz: AUGUST 2020 Third COVID19 Vaccination Date: MAR 2021 Seasonal Allergies Seasonal Allergies: No Past Medical History Surgery/Hospitalization HX: PMH: CARDIAC STENT, L SHOULDER REPLACEMENT, MELANOMA, GERD, HTN, AFIB, BLOOD THINNER, Surgeries: Yes (Appendectomy-Early 60's, Tonsillectomy, [place] teeth x3) Appendectomy, Tonsillectomy Respiratory: No Cardiac: Yes Atrial Fibrillation, Coronary Artery Disease, Heart Attack, High Cholesterol, Hypertension Neurological: Yes (2002) TIA Reproductive Disorders: No Genitourinary: No Gastrointestinal: Yes Gastroesophageal Reflux, Hemorrhoids Musculoskeletal: Yes Arthritis Endocrine: No Cancer: Yes Melanoma Did You Recieve Any Treatments: Yes What Type of Treatment Did You: Surgical Intervention Psychosocial: No Integumentary: No Blood Disorders: No Adverse Reaction/Blood Tranf: No Family Medical History Reviewed Nursing Family Hx Heart Disease, CAD Under 55 Years Old, Stroke Physical Exam Vital Signs Vital Signs - First Documented 08/10/22 09:20 Pulse 71 Resp 16 B/P (MAP) 149/74 (99) Pulse Ox 97 O2 Delivery Room Air Capillary Refill : Less Than 3 Seconds Height, Weight, BMI Height: 5'11.00" Weight: 226lbs. 0.0oz. 102.493500kw; 31.00 BMI Method:Stated General Appearance: No Apparent Distress, WD/WN HEENT: Normal ENT Inspection, Pharynx Normal Neck: Full Range of Motion, Normal Inspection, Supple Respiratory: Chest Non Tender, Lungs Clear, Normal Breath Sounds, No Accessory Muscle Use, No Respiratory Distress Cardiovascular: Regular Rate, Rhythm, No Edema, No Gallop, No JVD, No Murmur, Normal Peripheral Pulses Gastrointestinal: Normal Bowel Sounds, No Organomegaly, No Pulsatile Mass, Non Tender, Soft Extremity: Normal Capillary Refill, Normal Inspection, Normal Range of Motion, Non Tender, No Calf Tenderness Neurologic/Psychiatric: Alert, Oriented x3, Normal Mood/Affect Skin: Normal Color, Warm/Dry Progress/Results/Core Measures Suspected Sepsis SIRS Temperature: Pulse: 71 Respiratory Rate: 16 Laboratory Tests 08/10/22 09:40: White Blood Count 9.6 Blood Pressure 149 /74 Mean: 99 Laboratory Tests 08/10/22 09:40: Creatinine 1.80H, Platelet Count 240, Total Bilirubin 0.4 Results/Orders Lab Results Laboratory Tests Test 08/10/22 09:40 Range/Units White Blood Count 9.6 4.3-11.0 10^3/uL Red Blood Count 4.04 L 4.30-5.52 10^6/uL Hemoglobin 12.5 L 13.3-17.7 g/dL Hematocrit 36 L 40-54 % Mean Corpuscular Volume 89 80-99 fL Mean Corpuscular Hemoglobin 31 25-34 pg Mean Corpuscular Hemoglobin Concent 35 32-36 g/dL Red Cell Distribution Width 12.8 10.0-14.5 % Platelet Count 240 130-400 10^3/uL Mean Platelet Volume 9.6 9.0-12.2 fL Immature Granulocyte % (Auto) 0 % Neutrophils (%) (Auto) 66 42-75 % Lymphocytes (%) (Auto) 24 12-44 % Monocytes (%) (Auto) 7 0-12 % Eosinophils (%) (Auto) 2 0-10 % Basophils (%) (Auto) 0 0-10 % Neutrophils # (Auto) 6.4 1.8-7.8 10^3/uL Lymphocytes # (Auto) 2.3 1.0-4.0 10^3/uL Monocytes # (Auto) 0.7 0.0-1.0 10^3/uL Eosinophils # (Auto) 0.2 0.0-0.3 10^3/uL Basophils # (Auto) 0.0 0.0-0.1 10^3/uL Immature Granulocyte # (Auto) 0.0 0.0-0.1 10^3/uL Sodium Level 137 135-145 MMOL/L Potassium Level 4.0 3.6-5.0 MMOL/L Chloride Level 104 98-107 MMOL/L Carbon Dioxide Level 25 21-32 MMOL/L Anion Gap 8 5-14 MMOL/L Blood Urea Nitrogen 26 H 7-18 MG/DL Creatinine 1.80 H 0.60-1.30 MG/DL Estimat Glomerular Filtration Rate 37 BUN/Creatinine Ratio 14 Glucose Level 137 H 70-105 MG/DL Calcium Level 9.5 8.5-10.1 MG/DL Corrected Calcium 9.3 8.5-10.1 MG/DL Magnesium Level 2.4 1.6-2.4 MG/DL Total Bilirubin 0.4 0.1-1.0 MG/DL Aspartate Amino Transf (AST/SGOT) 16 5-34 U/L Alanine Aminotransferase (ALT/SGPT) 21 0-55 U/L Alkaline Phosphatase 57 40-136 U/L Troponin I < 0.028 <0.028 NG/ML Total Protein 6.9 6.4-8.2 GM/DL Albumin 4.2 3.2-4.5 GM/DL My Orders Orders - PHILLADI L DO Cbc With Automated Diff (08/10/22 09:21) Magnesium (08/10/22 09:21) Chest 1 View, Ap/Pa Only (08/10/22 09:21) Comprehensive Metabolic Panel (08/10/22 09:21) Troponin I Olga (08/10/22 09:21) Vital Signs/I&O 08/10/22 08/10/22 09:20 09:20 Pulse 71 Resp 16 B/P (MAP) 149/74 (99) Pulse Ox 97 O2 Delivery Room Air Capillary Refill : Less Than 3 Seconds Blood Pressure Mean: 99 ECG Comment Sinus rhythm with a rate of 69 bpm. Normal intervals. Left axis deviation. No ST or T wave abnormalities. No ectopy. No STEMI Independently reviewed by myself Departure Communication (Admissions) Patient is hemodynamically stable, completely asymptomatic at the time of his arrival. He is really just looking for peace of mind and wants cardiac work-up to ensure this is not from his heart. His EKG is nonischemic, troponin is negative. Chest x-ray is normal. Labs reassuring. He has mild elevation of BUN and creatinine, appears to be close to his normal baseline. Evidence for ACS or other emergent condition at this time .he is discharged home with supportive care. Impression Primary Impression: Intermittent epigastric abdominal pain Disposition: HOME, SELF-CARE Condition: Stable Departure-Patient Inst. Referrals: DIA FERREIRA MD (PCP/Family) Primary Care Physician Patient Instructions: Abdominal Pain, Adult ED Add. Discharge Instructions: You were seen in the emergency department today for upper abdominal pain. This does not appear to be coming from your heart or your lungs, or from any other emergent condition. Please continue [id number] treatments as needed. Return to the emergency department for any severe concerns. Follow-up with your primary doctor for any nonemergent needs. All discharge instructions reviewed with patient and/or family. Voiced understanding. LADI VILLARREAL DO Aug 10, 2022 09:48
[2022-08-10 09:54] LABS: BASOPHILS % (AUTO) 0 % (0-10); EOSINOPHILS # (AUTO) 0.2 10^3/uL (0.0-0.3); EOSINOPHILS % (AUTO) 2 % (0-10); HEMATOCRIT 36 % (40-54); HEMOGLOBIN 12.5 g/dL (13.3-17.7); LYMPHOCYTES # (AUTO) 2.3 10^3/uL (1.0-4.0); LYMPHOCYTES % (AUTO) 24 % (12-44); MEAN CORPUSCULAR HEMOGLOBIN 31 pg (25-34); MEAN CORPUSCULAR HGB CONC 35 g/dL (32-36); MEAN CORPUSCULAR VOLUME 89 fL (80-99); MEAN PLATELET VOLUME 9.6 fL (9.0-12.2); MONOCYTES # (AUTO) 0.7 10^3/uL (0.0-1.0); MONOCYTES % (AUTO) 7 % (0-12); NEUTROPHILS # (AUTO) 6.4 10^3/uL (1.8-7.8); NEUTROPHILS % (AUTO) 66 % (42-75); PLATELET COUNT 240 10^3/uL (130-400); WHITE BLOOD COUNT 9.6 10^3/uL (4.3-11.0)
--- NOTE | 2022-08-10 10:03 | Diagnostic Imaging Report ---
EXAMINATION: Chest, 1 view. HISTORY: Chest pain. COMPARISON: 08/12/2021. FINDINGS: Heart size and pulmonary vasculature are normal. The lungs are clear without consolidation, pleural effusion, or pneumothorax. Surgical changes from right shoulder arthroplasty. IMPRESSION: No acute radiographic abnormality in the chest. Dictated by: Dictated on workstation # [id number]
[2022-08-10 10:07] LABS: ALBUMIN 4.2 GM/DL (3.2-4.5)
[2022-08-10 10:08] LABS: CALCIUM 9.5 MG/DL (8.5-10.1)
[2022-08-10 10:09] LABS: TOTAL PROTEIN 6.9 GM/DL (6.4-8.2)
[2022-08-10 10:11] LABS: BILIRUBIN,TOTAL 0.4 MG/DL (0.1-1.0)
[2022-08-10 10:13] LABS: CREATININE SERUM 1.8 MG/DL (0.60-1.30)
[2022-08-10 10:15] LABS: MAGNESIUM 2.4 MG/DL (1.6-2.4)
[2022-08-10 10:33] VITALS: BP 135/89
== END 2022-08-10 10:33 | disposition home or self-care (01) ==
LOC: EDUNIT# 08:58 → ER 09:00
DX: R10.13 Epigastric pain (principal); R79.89 Other specified abnormal findings of blood chemistry; Z87.19 Personal history of other diseases of the digestive system; Z90.49 Acquired absence of other specified parts of digestive tract
CPT/HCPCS: 36415; 71045; 80053; 83735; 84484; 85025; 93005

== ENCOUNTER → 2022-08-21 | Outpatient (CLI) | payer MEDICARE, OTHER | LOC: CARD 13:30 | PROVIDERS: ATTEND Internal Medicine Cardiovascular Disease | DX: I35.1 Nonrheumatic aortic (valve) insufficiency (principal); I10 Essential (primary) hypertension | CPT/HCPCS: 93306 ==